=== PATIENT | female | born 1970 | race Caucasian/White ===

== ENCOUNTER 2018-09-14 09:24 | Emergency (ER) | payer OTHER ==
[~2018-09-14] VITALS: Ht 162.6 cm; Wt 90.7 kg
[2018-09-14 09:28] VITALS: BP 152/82
--- NOTE | 2018-09-14 09:35 | NUR ---
PATIENT AMBULATED TO BED 4.
--- NOTE | 2018-09-14 09:36 | NUR ---
BIB DAUGHTER. AAO X4 C/O RIGHT SIDE FACIAL DROOP, RIGHT SIDE FACIAL NUMBNESS, RIGHT EYE WATERY X LAST NIGHT 1899. A&OX4, DENIES PAIN. SPEECH IS CLEAR, DENIES WEAKNESS, AMBULATES WITH STEADY GAIT, BILAT HAND CRIPS EQUAL AND STRONG. PT DENIES SOB, DIFFICULTY SWALLOWING, N/V. CONVERSTATES APPROPRIATELY. ER TO EVALUATE PT.
[2018-09-14] MEDS ORDERED: THIAMINE 200 MG/2 ML VIAL IM ONE (09:40)
[2018-09-14] MEDS ORDERED: DEXAMETHASONE 10 MG/ML VIAL IM ONE (09:40)
--- NOTE | 2018-09-14 09:40 | NUR ---
DR PEREZ AT BEDSIDE FOR PT EVALUATION
--- NOTE | 2018-09-14 09:45 | NUR ---
PT TAKEN TO CT VIA WHEEL CHAIR BY TRAFFIC WAREHOUSE SUPERVISOR
[2018-09-14 11:29] VITALS: BP 107/59
--- NOTE | 2018-09-14 11:29 | NUR ---
Patient discharged with v/s stable. Written and verbal after care instructions given and explained. Patient alert, oriented and verbalized understanding of instructions. Ambulatory with steady gait. All questions addressed prior to discharge. ID band removed. Patient advised to follow up with PMD. Pt advised to utilize eye drops as need for dryness and sleep with eye patch at night. Rx of Acyclovir 400mg and Prednisone 20mg given. Patient educated on indication of medication including possible reaction and side effects. Opportunity to ask questions provided and answered.
== END 2018-09-14 11:29 | disposition home or self-care (01) ==
LOC: MED 09:24
DX: G51.0 Bell's palsy (principal); Z90.710 Acquired absence of both cervix and uterus
CPT/HCPCS: 70450; 81025; 96372; 99284; J1100; J3411